=== PATIENT | female | born 1955 | race Caucasian/White ===

== ENCOUNTER 2020-09-02 12:34 | Inpatient (IN) ==
[2020-09-02] MEDS ORDERED: *HR* Dextrose 50 % in Water (Vial) 50 ML VIAL IVP PRN (17:12)
[2020-09-02] MEDS ORDERED: Dextrose Gel 15 GM/37.5 ML TUBE PO PRN ×2 (17:12)
[2020-09-02] MEDS ORDERED: D5% in Water 1,000 ML IVC PRN (17:12)
[2020-09-02] MEDS: *HR* Metformin 500 MG TABLET PO SCH (17:14)
[2020-09-02] MEDS: Primidone 50 MG TABLET PO SCH (21:17)
[2020-09-02] MEDS: Gabapentin 300 MG CAPSULE PO SCH (21:18)
[2020-09-02] MEDS: *HR* OxyCODONE Immed Rel 5 MG TABLET PO PRN (21:18)
[2020-09-02] MEDS: Insulin LISPRO 300 UNITS/3 ML VIAL SQ SCH (21:19)
[2020-09-02] MEDS: Budesonide/Formoterol 160/4.5 1 PUFF INH IH SCH (21:31)
[2020-09-02 22:54] LABS: Estimated Average Glucose 140 mg/dl
[2020-09-03] MEDS: *HR* Enoxaparin 40 MG/0.4 ML SYRINGE SQ SCH (06:24)
[2020-09-03] MEDS ORDERED: Tiotropium 18 MCG inhalation IH ONE (07:26)
[2020-09-03] MEDS: Budesonide/Formoterol 160/4.5 1 PUFF INH IH SCH ×2 (07:38→22:38)
[2020-09-03] MEDS: Tiotropium 18 MCG inhalation IH SCH (07:40)
[2020-09-03 08:29] LABS: Basophils % 0.2 %; Eosinophils # 0.3 K/mcL (0.0-0.6); Eosinophils % 4.6 %; Hematocrit 32.6 % (35.3-44.9); Hemoglobin 10.6 g/dL (11.5-15.4); Immature Granulocytes % 0.3 % (0-4); Lymphocytes # 1.4 K/mcL (0.6-4.6); Lymphocytes % 22.7 %; Mean Corpuscular HGB Conc 32.5 g/dL (31.6-35.5); Mean Corpuscular Hemoglobin 28.5 pg (28.0-33.3); Mean Corpuscular Volume 87.6 fL (83.0-100.0); Mean Platelet Volume 12.1 fL (9.4-12.4); Monocytes # 0.5 K/mcL (0.0-1.3); Monocytes % 8.1 %; Neutrophils # 3.9 K/mcL (1.6-8.9); Platelet Count 188 K/mcL (140-400); Red Blood Count 3.72 M/mcL (3.82-4.97); Red Cell Distribution Width 14.1 % (11.5-14.5); Segmented Neutrophils % 64.1 %; White Blood Count 6.1 K/mcL (4.3-11.1)
[2020-09-03 08:45] LABS: BUN/Creatinine Ratio 15 (6-26); Blood Urea Nitrogen 12 mg/dL (8-23); Calcium 8.7 mg/dL (8.6-10.3); Carbon Dioxide 29 mEq/L (23-29); Chloride 97 mEq/L (98-107); Glucose 121 mg/dL (70-105); Osmolality,Calculated 279 (280-300); Potassium 3.5 mEq/L (3.5-5.1); Sodium 134 mEq/L (136-145); eGFR For African Americans > 60 (> 60); eGFR For Non-African Americans > 60 (> 60)
[2020-09-03] MEDS: Insulin LISPRO 300 UNITS/3 ML VIAL SQ SCH ×4 (09:14→20:07)
[2020-09-03] MEDS: Multivit/Ca/Min/Fe/FA 1 TAB TABLET PO SCH (09:24)
[2020-09-03] MEDS: *HR* Metformin 500 MG TABLET PO SCH ×2 (09:25→16:31)
[2020-09-03] MEDS: Loratadine 10 MG TABLET PO SCH (09:25)
[2020-09-03] MEDS: amLODIPine 5 MG TABLET PO SCH (09:25)
[2020-09-03] MEDS: Primidone 50 MG TABLET PO SCH ×2 (09:25→20:12)
[2020-09-03] MEDS: Metoprolol XL (24 HR) Succ 25 MG TAB.ER.24H PO SCH (09:25)
[2020-09-03] MEDS: Gabapentin 300 MG CAPSULE PO SCH ×3 (09:25→20:12)
[2020-09-03] MEDS: hydroCHLOROthiazide 25 MG TABLET PO SCH (09:25)
[2020-09-03] MEDS: Valsartan 80 MG TABLET PO SCH (09:26)
[2020-09-03] MEDS: *HR* OxyCODONE Immed Rel 5 MG TABLET PO PRN (09:38)
[2020-09-03] MEDS: Fluticasone Propionate Nasal 50 MCG/SPRAY BOTTLE NS SCH (09:39)
[2020-09-03] MEDS: Acetaminophen 325 MG TABLET PO PRN (20:19)
[2020-09-04] MEDS: *HR* Enoxaparin 40 MG/0.4 ML SYRINGE SQ SCH (05:53)
[2020-09-04] MEDS: Insulin LISPRO 300 UNITS/3 ML VIAL SQ SCH ×4 (08:20→20:00)
[2020-09-04] MEDS: Acetaminophen 325 MG TABLET PO PRN (08:32)
[2020-09-04] MEDS: *HR* Metformin 500 MG TABLET PO SCH ×2 (08:33→16:55)
[2020-09-04] MEDS: Valsartan 80 MG TABLET PO SCH (08:33)
[2020-09-04] MEDS: Metoprolol XL (24 HR) Succ 25 MG TAB.ER.24H PO SCH (08:33)
[2020-09-04] MEDS: Gabapentin 300 MG CAPSULE PO SCH ×3 (08:33→20:00)
[2020-09-04] MEDS: Primidone 50 MG TABLET PO SCH ×2 (08:33→20:00)
[2020-09-04] MEDS: Multivit/Ca/Min/Fe/FA 1 TAB TABLET PO SCH (08:33)
[2020-09-04] MEDS: amLODIPine 5 MG TABLET PO SCH (08:33)
[2020-09-04] MEDS: hydroCHLOROthiazide 25 MG TABLET PO SCH (08:34)
[2020-09-04] MEDS: Loratadine 10 MG TABLET PO SCH (08:34)
[2020-09-04] MEDS: Fluticasone Propionate Nasal 50 MCG/SPRAY BOTTLE NS SCH (08:34)
[2020-09-04] MEDS: Budesonide/Formoterol 160/4.5 1 PUFF INH IH SCH ×2 (08:46→22:40)
[2020-09-04] MEDS: Tiotropium 18 MCG inhalation IH SCH (08:46)
[2020-09-05] MEDS: *HR* Enoxaparin 40 MG/0.4 ML SYRINGE SQ SCH (04:49)
[2020-09-05] MEDS: *HR* OxyCODONE Immed Rel 5 MG TABLET PO PRN ×2 (04:49→20:01)
[2020-09-05] MEDS: Insulin LISPRO 300 UNITS/3 ML VIAL SQ SCH ×4 (07:44→21:33)
[2020-09-05] MEDS: *HR* Metformin 500 MG TABLET PO SCH ×2 (07:45→17:10)
[2020-09-05] MEDS: Valsartan 80 MG TABLET PO SCH (07:45)
[2020-09-05] MEDS: Primidone 50 MG TABLET PO SCH ×2 (07:46→20:02)
[2020-09-05] MEDS: Gabapentin 300 MG CAPSULE PO SCH ×3 (07:46→20:01)
[2020-09-05] MEDS: Multivit/Ca/Min/Fe/FA 1 TAB TABLET PO SCH (07:46)
[2020-09-05] MEDS: Loratadine 10 MG TABLET PO SCH (07:46)
[2020-09-05] MEDS: Metoprolol XL (24 HR) Succ 25 MG TAB.ER.24H PO SCH (07:46)
[2020-09-05] MEDS: amLODIPine 5 MG TABLET PO SCH (07:47)
[2020-09-05] MEDS: hydroCHLOROthiazide 25 MG TABLET PO SCH (07:47)
[2020-09-05] MEDS: Fluticasone Propionate Nasal 50 MCG/SPRAY BOTTLE NS SCH (07:56)
[2020-09-05] MEDS: Budesonide/Formoterol 160/4.5 1 PUFF INH IH SCH ×2 (10:00→21:18)
[2020-09-05] MEDS: Tiotropium 18 MCG inhalation IH SCH (10:00)
[2020-09-06] MEDS: *HR* Metformin 500 MG TABLET PO SCH ×2 (06:23→17:55)
[2020-09-06] MEDS: *HR* Enoxaparin 40 MG/0.4 ML SYRINGE SQ SCH (06:23)
[2020-09-06] MEDS: Primidone 50 MG TABLET PO SCH ×2 (06:23→20:01)
[2020-09-06] MEDS: Budesonide/Formoterol 160/4.5 1 PUFF INH IH SCH ×2 (10:36→21:19)
[2020-09-06] MEDS: Tiotropium 18 MCG inhalation IH SCH (10:36)
[2020-09-06] MEDS: Insulin LISPRO 300 UNITS/3 ML VIAL SQ SCH ×3 (12:35→20:02)
[2020-09-06] MEDS: *HR* OxyCODONE Immed Rel 5 MG TABLET PO PRN (12:36)
[2020-09-06] MEDS: amLODIPine 5 MG TABLET PO SCH (12:36)
[2020-09-06] MEDS: Gabapentin 300 MG CAPSULE PO SCH ×3 (12:36→20:01)
[2020-09-06] MEDS: Multivit/Ca/Min/Fe/FA 1 TAB TABLET PO SCH (12:36)
[2020-09-06] MEDS: Loratadine 10 MG TABLET PO SCH (12:37)
[2020-09-06] MEDS: Valsartan 80 MG TABLET PO SCH (12:37)
[2020-09-06] MEDS: Metoprolol XL (24 HR) Succ 25 MG TAB.ER.24H PO SCH (12:37)
[2020-09-06] MEDS: hydroCHLOROthiazide 25 MG TABLET PO SCH (12:37)
[2020-09-06] MEDS: Fluticasone Propionate Nasal 50 MCG/SPRAY BOTTLE NS SCH (12:40)
[2020-09-07] MEDS: *HR* Enoxaparin 40 MG/0.4 ML SYRINGE SQ SCH (06:07)
[2020-09-07] MEDS: Insulin LISPRO 300 UNITS/3 ML VIAL SQ SCH ×4 (08:03→20:46)
[2020-09-07] MEDS: Primidone 50 MG TABLET PO SCH ×2 (08:04→19:48)
[2020-09-07] MEDS: Valsartan 80 MG TABLET PO SCH (08:04)
[2020-09-07] MEDS: Gabapentin 300 MG CAPSULE PO SCH ×3 (08:04→19:48)
[2020-09-07] MEDS: Multivit/Ca/Min/Fe/FA 1 TAB TABLET PO SCH (08:04)
[2020-09-07] MEDS: Loratadine 10 MG TABLET PO SCH (08:04)
[2020-09-07] MEDS: amLODIPine 5 MG TABLET PO SCH (08:04)
[2020-09-07] MEDS: *HR* Metformin 500 MG TABLET PO SCH ×2 (08:04→16:44)
[2020-09-07] MEDS: Metoprolol XL (24 HR) Succ 25 MG TAB.ER.24H PO SCH (08:04)
[2020-09-07] MEDS: hydroCHLOROthiazide 25 MG TABLET PO SCH (08:04)
[2020-09-07] MEDS: Fluticasone Propionate Nasal 50 MCG/SPRAY BOTTLE NS SCH (08:05)
[2020-09-07] MEDS: Tiotropium 18 MCG inhalation IH SCH (10:23)
[2020-09-07] MEDS: Budesonide/Formoterol 160/4.5 1 PUFF INH IH SCH ×2 (10:23→22:14)
[2020-09-08] MEDS: *HR* Enoxaparin 40 MG/0.4 ML SYRINGE SQ SCH (05:40)
[2020-09-08] MEDS: Acetaminophen 325 MG TABLET PO PRN (05:40)
[2020-09-08] MEDS: Insulin LISPRO 300 UNITS/3 ML VIAL SQ SCH ×4 (07:26→20:50)
[2020-09-08] MEDS: Metoprolol XL (24 HR) Succ 25 MG TAB.ER.24H PO SCH (08:15)
[2020-09-08] MEDS: hydroCHLOROthiazide 25 MG TABLET PO SCH (08:15)
[2020-09-08] MEDS: *HR* Metformin 500 MG TABLET PO SCH ×2 (08:15→17:17)
[2020-09-08] MEDS: Multivit/Ca/Min/Fe/FA 1 TAB TABLET PO SCH (08:15)
[2020-09-08] MEDS: Loratadine 10 MG TABLET PO SCH (08:15)
[2020-09-08] MEDS: amLODIPine 5 MG TABLET PO SCH (08:15)
[2020-09-08] MEDS: Gabapentin 300 MG CAPSULE PO SCH ×3 (08:15→19:46)
[2020-09-08] MEDS: Valsartan 80 MG TABLET PO SCH (08:15)
[2020-09-08] MEDS: Primidone 50 MG TABLET PO SCH ×2 (08:16→19:47)
[2020-09-08] MEDS: Fluticasone Propionate Nasal 50 MCG/SPRAY BOTTLE NS SCH (08:16)
[2020-09-08] MEDS: Budesonide/Formoterol 160/4.5 1 PUFF INH IH SCH ×2 (10:08→22:17)
[2020-09-08] MEDS: Tiotropium 18 MCG inhalation IH SCH (10:08)
[2020-09-09] MEDS: *HR* Enoxaparin 40 MG/0.4 ML SYRINGE SQ SCH (05:41)
[2020-09-09 07:23] VITALS: BP 141/83
[2020-09-09] MEDS: Insulin LISPRO 300 UNITS/3 ML VIAL SQ SCH (07:53)
[2020-09-09] MEDS: hydroCHLOROthiazide 25 MG TABLET PO SCH (08:01)
[2020-09-09] MEDS: Primidone 50 MG TABLET PO SCH (08:01)
[2020-09-09] MEDS: Fluticasone Propionate Nasal 50 MCG/SPRAY BOTTLE NS SCH (08:02)
[2020-09-09] MEDS: Metoprolol XL (24 HR) Succ 25 MG TAB.ER.24H PO SCH (08:02)
[2020-09-09] MEDS: amLODIPine 5 MG TABLET PO SCH (08:02)
[2020-09-09] MEDS: *HR* Metformin 500 MG TABLET PO SCH (08:02)
[2020-09-09] MEDS: Multivit/Ca/Min/Fe/FA 1 TAB TABLET PO SCH (08:02)
[2020-09-09] MEDS: Valsartan 80 MG TABLET PO SCH (08:02)
[2020-09-09] MEDS: Gabapentin 300 MG CAPSULE PO SCH (08:02)
[2020-09-09] MEDS: Loratadine 10 MG TABLET PO SCH (08:02)
[2020-09-09] MEDS: Tiotropium 18 MCG inhalation IH SCH (09:18)
[2020-09-09] MEDS: Budesonide/Formoterol 160/4.5 1 PUFF INH IH SCH (09:18)
== END 2020-09-09 10:25 | disposition home health service (06) | DRG 560 ==
LOC: INPPIK 14:55
PROVIDERS: ADMIT Family Medicine; ATTEND Family Medicine

== ENCOUNTER 2022-03-19 23:18 | Observation (INO) ==
[2022-03-19] MEDS ORDERED: 0.9 % Sodium Chloride 1,000 ML IVC ONE (23:23)
[2022-03-19] MEDS ORDERED: Acetaminophen 325 MG TABLET PO ONE (23:29)
[2022-03-19] MEDS ORDERED: 0.9 % Sodium Chloride 1,000 ML IVC SCH (23:30)
[2022-03-19 23:54] LABS: Basophils % 0.3 %; Eosinophils # 0.3 K/mcL (0.0-0.6); Eosinophils % 3.6 %; Hematocrit 33.2 % (35.3-44.9); Hemoglobin 10.4 g/dL (11.5-15.4); Immature Granulocytes % 0.4 % (0-4); Lymphocytes # 0.8 K/mcL (0.6-4.6); Lymphocytes % 10.2 %; Mean Corpuscular HGB Conc 31.3 g/dL (31.6-35.5); Mean Platelet Volume 11.3 fL (9.4-12.4); Monocytes # 0.5 K/mcL (0.0-1.3); Monocytes % 6.6 %; Neutrophils # 5.9 K/mcL (1.6-8.9); Platelet Count 225 K/mcL (140-400); Red Cell Distribution Width 14.7 % (11.5-14.5); Segmented Neutrophils % 78.9 %; White Blood Count 7.5 K/mcL (4.3-11.1)
[2022-03-20 00:13] LABS: Troponin I < 0.03 ng/mL (< 0.04)
[2022-03-20] MEDS ORDERED: Ondansetron 4 MG/2 ML VIAL IVP ONE (00:15)
[2022-03-20 00:24] LABS: Bilirubin,Urine Negative (Negative); Blood,Urine Negative (Negative); Clarity,Urine Clear (Clear); Color,Urine Yellow (Yellow); Glucose,Urine (UA) Normal (Normal); Ketones,Urine Negative (Negative); Leukocyte Esterase,Urine Negative (Negative); Nitrite,Urine Negative (Negative); PH,Urine 8.5 pH Units (5.0-8.0); Protein,Urine Trace mg/dL (Neg-Trace); Specific Gravity,Urine 1.015 (1.010-1.025); Urobilinogen,Urine Normal (Normal)
[2022-03-20 00:26] LABS: BUN/Creatinine Ratio 16 (6-26); Blood Urea Nitrogen 16 mg/dL (8-23); Calcium 9.2 mg/dL (8.6-10.3); Carbon Dioxide 28 mEq/L (23-29); Chloride 99 mEq/L (98-107); Glucose 120 mg/dL (70-105); Osmolality,Calculated 284 (280-300); Potassium 4.2 mEq/L (3.5-5.1); Sodium 136 mEq/L (136-145); eGFR For African Americans > 60 (> 60); eGFR For Non-African Americans 56 (> 60)
[2022-03-20 00:27] LABS: Albumin 3.9 g/dL (3.5-5.7); Bilirubin,Direct 0.1 mg/dL (0.0-0.2); Bilirubin,Indirect 0.2 mg/dL (0.0-1.0); Bilirubin,Total 0.3 mg/dL (0.3-1.0); Globulin 3.8 g/dL (2.4-3.5); Total Protein 7.7 g/dL (6.4-8.9)
[2022-03-20] MEDS ORDERED: Dexamethasone Sodium Phos/PF 10 MG/ML VIAL IVP ONE (00:30)
[2022-03-20] MEDS ORDERED: Dexamethasone Sodium Phos/PF 10 MG/ML VIAL PO ONE (00:36)
[2022-03-20] MEDS ORDERED: *HR* Dextrose 50 % in Water (Syg) 50 ML SYRINGE IVP PRN ×2 (02:27→11:43)
[2022-03-20] MEDS ORDERED: Dextrose 4 GM Chewable Tablets PO PRN ×4 (02:27→11:43)
[2022-03-20] MEDS ORDERED: Benzonatate 100 MG CAPSULE PO PRN (02:27)
[2022-03-20] MEDS ORDERED: D5% in Water 1,000 ML IVC PRN ×2 (02:27→11:43)
[2022-03-20] MEDS ORDERED: *HR* HYDROcodone/Acet 5/325 mg TABLET PO PRN (02:27)
[2022-03-20] MEDS ORDERED: 0.9 % Sodium Chloride 1,000 ML IVC SCH (02:27)
[2022-03-20] MEDS ORDERED: Ondansetron ODT 4 MG TAB.RAPDIS SL PRN (02:27)
[2022-03-20] MEDS ORDERED: Melatonin 3 MG TABLET PO PRN (02:27)
[2022-03-20] MEDS ORDERED: Naloxone 0.4 MG/ML INJ IVP PRN (02:27)
[2022-03-20] MEDS ORDERED: MOM Conc 10 ML UD.LIQ PO PRN (02:27)
[2022-03-20] MEDS ORDERED: Mag Hydrox/Al Hydrox/Simeth 30 ML UDC PO PRN (02:27)
[2022-03-20] MEDS ORDERED: Albuterol 2.5 MG/3 ML NEBULIZER IH PRN (02:27)
[2022-03-20] MEDS: 0.9 % Sodium Chloride 1,000 ML IVC SCH ×2 (02:30→09:52)
[2022-03-20] MEDS ORDERED: Ipratropium/Albuterol Neb 3 ML IH SCH (04:00)
[2022-03-20] MEDS: Ipratropium 1 PUFF INHALER IH SCH ×4 (05:09→22:47)
[2022-03-20] MEDS: Insulin LISPRO 300 UNITS/3 ML VIAL SUBQ SCH ×3 (08:51→17:10)
[2022-03-20] MEDS: Primidone 50 MG TABLET PO SCH (08:53)
[2022-03-20] MEDS: Gabapentin 300 MG CAPSULE PO SCH ×3 (08:53→20:54)
[2022-03-20] MEDS: Valsartan 80 MG TABLET PO SCH (08:53)
[2022-03-20] MEDS: Metoprolol XL (24 HR) Succ 25 MG TAB.ER.24H PO SCH (08:54)
[2022-03-20] MEDS: *HR* Metformin 500 MG TABLET PO SCH ×2 (08:54→20:54)
[2022-03-20] MEDS: hydroCHLOROthiazide 25 MG TABLET PO SCH (08:54)
[2022-03-20] MEDS: *HR* Enoxaparin 40 MG/0.4 ML SYRINGE SQ SCH (09:23)
[2022-03-20] MEDS: Budesonide/Formoterol 160/4.5 1 PUFF INH IH SCH ×2 (12:14→22:48)
[2022-03-20] MEDS ORDERED: Insulin LISPRO 300 UNITS/3 ML VIAL SUBQ SCH (21:00)
[2022-03-20] MEDS ORDERED: Primidone 50 MG TABLET PO SCH (21:00)
[2022-03-21] MEDS: Ipratropium 1 PUFF INHALER IH SCH ×2 (04:28→09:32)
[2022-03-21] MEDS: *HR* Enoxaparin 40 MG/0.4 ML SYRINGE SQ SCH (05:35)
[2022-03-21 08:30] VITALS: RESP 18
[2022-03-21] MEDS ORDERED: dexAMETHasone 4 MG TABLET PO SCH (09:00)
[2022-03-21] MEDS: Insulin LISPRO 300 UNITS/3 ML VIAL SUBQ SCH ×2 (09:23→12:35)
[2022-03-21] MEDS: Budesonide/Formoterol 160/4.5 1 PUFF INH IH SCH (09:32)
[2022-03-21] MEDS: *HR* Metformin 500 MG TABLET PO SCH (09:33)
[2022-03-21] MEDS: Gabapentin 300 MG CAPSULE PO SCH (09:33)
[2022-03-21] MEDS: Valsartan 80 MG TABLET PO SCH (09:33)
[2022-03-21] MEDS: hydroCHLOROthiazide 25 MG TABLET PO SCH (09:34)
[2022-03-21] MEDS: Primidone 50 MG TABLET PO SCH (09:34)
[2022-03-21] MEDS: Metoprolol XL (24 HR) Succ 25 MG TAB.ER.24H PO SCH (09:34)
[2022-03-21 11:11] VITALS: BP 131/71; PULSE 83; TEMP 99; O2SAT 93
== END 2022-03-21 14:13 | disposition home or self-care (01) ==
LOC: EMEROOPIK 23:18 → INPPIK 23:18
PROVIDERS: ADMIT Internal Medicine; ATTEND Internal Medicine